=== PATIENT | male | born 1955 | race Two or more races ===

== ENCOUNTER 2017-01-08 15:13 | Emergency (ER) | payer OTHER ==
[2017-01-08 15:22] VITALS: TEMP 97.5; BMI 25.7
[2017-01-08] MEDS ORDERED: SODIUM CHLORIDE 1,000 ML IV STA (15:44)
[2017-01-08] MEDS ORDERED: KETOROLAC TROMETHAMINE 30 MG/1 ML VIAL IVPUSH ONE (15:44)
[2017-01-08] MEDS ORDERED: KETOROLAC TROMETHAMINE 30 MG/1 ML VIAL ONE (15:51)
--- NOTE | 2017-01-08 15:56 | PDOC ---
History of Present Illness - General History Source: Patient Exam Limitations: Language Barrier (The patient's adult son provided translation ) - History of Present Illness Initial Comments: CHIEF COMPLAINT: 61 y/o afebrile male with PMH kidney stones c/o worsened right flank pain over the past 3 days. HISTORY OF PRESENT ILLNESS: The patient states for the past 3 days he has had right flank pain. Today the pain has gotten much worse. He also has nausea, vomiting, chills and hematuria today. He hasn't taken anything for pain. He denies fever, MARTINEZ, CP, SOB, abd pain, dysuria. Vital signs on arrival are within normal limits. REVIEW OF SYSTEMS: GENERAL/CONSTITUTIONAL: No fever. +subjective chills. No weakness. No weight change. HEAD, EYES, EARS, NOSE AND THROAT: No change in vision. No ear pain or discharge. No sore throat. CARDIOVASCULAR: No chest pain or shortness of breath. RESPIRATORY: No cough, wheezing, or hemoptysis. GASTROINTESTINAL: +nausea, vomiting, right flank pain. No diarrhea, constipation. GENITOURINARY: +hematuria. No dysuria or frequency. MUSCULOSKELETAL: No joint or muscle swelling or pain. No neck pain. +right back pain. SKIN: No rash or easy bruising. NEUROLOGIC: No headache, vertigo, loss of consciousness, or loss of sensation. PHYSICAL EXAM: GENERAL: The patient is awake, alert, and fully oriented, in obvious moderate- severe discomfort, writhing around in pain. HEAD: Normal with no signs of trauma. ENT: Pupils equal, round and reactive to light, extraocular movements intact, sclera anicteric, conjunctiva clear. Neck supple. LUNGS: Clear to auscultation bilaterally. Normal excursion. No respiratory distress or use of accessory muscles. CV: RRR, S1/S2, no MRG. Cap refill < 2 sec. ABDOMEN: Soft, non-distended, non-tender even to deep palpation, no hepatomegaly or splenomegaly, no masses. BACK: Right CVA TTP and right flank pain. EXTREMITIES: Normal range of motion, no edema. NEUROLOGICAL: Normal speech, normal gait. CN II-XII grossly intact. PSYCH: Normal mood, normal affect. SKIN: Warm, dry, normal turgor, no rashes or lesions noted. <Katelyn Landis - Last Filed: 01/08/17 18:23> <Rosemarie Hoang - Last Filed: 01/09/17 17:42> - General Chief Complaint: Pain Stated Complaint: PAIN Time Seen by Provider: 01/08/17 15:27 Past History - Past Medical History Kidney Stones: Yes Suicide Attempt (Hx): No - Psycho/Social/Smoking Cessation Hx Anxiety: No Suicidal Ideation: No Smoking History: Never smoked Information on smoking cessation initiated: No Hx Alcohol Use: No Drug/Substance Use Hx: No Substance Use Type: None <Katelyn Landis - Last Filed: 01/08/17 18:23> <Rosemarie Hoang - Last Filed: 01/09/17 17:42> - Past Medical History Allergies/Adverse Reactions: Allergies Allergy/AdvReac Type Severity Reaction Status Date / Time No Known Allergies Allergy Verified 01/08/17 15:18 Home Medications: Ambulatory Orders Ibuprofen 800 mg PO TID #20 tablet 01/08/17 Oxycodone HCl/Acetaminophen [Percocet 5-325 mg Tablet] 1 tab PO Q6H #6 tablet MDD 3 01/08/17 Phenazopyridine HCl [Pyridium -] 100 mg PO TID #6 tablet 01/08/17 *Physical Exam - Vital Signs Last Vital Signs Temp Pulse Resp BP Pulse Ox 97.5 F L 70 18 152/87 100 01/08/17 15:19 01/08/17 15:19 01/08/17 15:19 01/08/17 15:19 01/08/17 15:19 <Katelyn Landis - Last Filed: 01/08/17 18:23> - Vital Signs Last Vital Signs Temp Pulse Resp BP Pulse Ox 97.5 F L 77 20 122/76 96 01/08/17 15:19 01/08/17 18:41 01/08/17 18:41 01/08/17 18:41 01/08/17 18:41 <Rosemarie Hoang - Last Filed: 01/09/17 17:42> ED Treatment Course - LABORATORY CBC & Chemistry Diagram: 01/08/17 16:00 01/08/17 16:00 - RADIOLOGY Radiology Studies Ordered: Category Date Time Status KIDNEY / RENAL US [US] Stat Ultrasound 01/08/17 15:44 Ordered <Katelyn Landis - Last Filed: 01/08/17 18:23> - LABORATORY CBC & Chemistry Diagram: 01/08/17 16:00 01/08/17 16:00 - ADDITIONAL ORDERS Additional order review: 01/08/17 16:00 RBC 5.05 MCV 88.5 MCHC 34.0 RDW 14.1 MPV 10.0 Neutrophils % 76.5 Lymphocytes % 14.8 D Monocytes % 7.8 Eosinophils % 0.7 Basophils % 0.2 - Medications Given in the ED: ED Medications Discontinued Medications Generic Name Dose Route Start Last Admin Trade Name Zanaq PRN Reason Stop Dose Admin Sodium Chloride 1,000 mls @ 1,000 mls/hr 01/08/17 15:44 01/08/17 16:22 Normal Saline - IV 01/08/17 16:43 1,000 mls/hr ASDIR STA Administration Ketorolac Tromethamine 30 mg 01/08/17 15:44 01/08/17 16:22 Toradol Injection - IVPUSH 01/08/17 15:45 30 mg ONCE ONE Administration Morphine Sulfate 4 mg 01/08/17 17:50 01/08/17 18:13 Morphine Injection - IVPUSH 01/08/17 17:51 4 mg ONCE ONE Administration Phenazopyridine HCl 100 mg 01/08/17 17:50 01/08/17 18:13 Pyridium - PO 01/08/17 17:51 100 mg ONCE ONE Administration <Rosemarie Hoang - Last Filed: 01/09/17 17:42> Medical Decision Making - Medical Decision Making A/P: 61 y/o afebrile male with most likely kidney stone. Will r/o pyelo. Plan is as follows: 1. Labs 2. UA/culture 3. IV fluids 4. IV toradol 5. Kidney ultrasound Labs unremarkable. UA without signs of infection Pt appears much more comfortable. Kidney Ultrasound IMPRESSION: CT evaluation may be considered. Spiral CT IMPRESSION: 3x2mm right ureteral calculus at the level of the mid pelvis with resultant mild hydronephrosis. 3mm nonobstructing right renal lower pole calculus. The patient states his pain is coming back. Ordered IV morphine and PO pyridium The patient states he now feels much better. Gave results to him and his son. Will discharge to home with rx for ibuprofen, percocet and pyridium. Pt instructed to drink plenty of fluids daily and f/u with Dr. Zelaya within 2 weeks. Pt instructed to return to the ER with any worsening or concerning symptoms. The patient verbalizes understanding of all instructions, has no further questions and is awaiting discharge. <Katelyn Landis - Last Filed: 01/08/17 18:23> - Medical Decision Making 01/09/17 17:42 Pt seen primarily by CORNELIUS Tapia Agree with plan <Rosemarie Hoang - Last Filed: 01/09/17 17:42> *DC/Admit/Observation/Transfer <Katelyn Landis - Last Filed: 01/08/17 18:23> <Rosemarie Hoang - Last Filed: 01/09/17 17:42> Diagnosis at time of Disposition: Kidney stone on right side - Discharge Dispostion Disposition: HOME Condition at time of disposition: Improved - Prescriptions Prescriptions: Ibuprofen 800 mg PO TID #20 tablet Oxycodone HCl/Acetaminophen [Percocet 5-325 mg Tablet] 1 tab PO Q6H #6 tablet MDD 3 Phenazopyridine HCl [Pyridium -] 100 mg PO TID #6 tablet - Referrals Referrals: STAFF,NOT ON [Primary Care Provider] - Miguel Ángel Zelaya MD [Staff Physician] - - Patient Instructions Printed Discharge Instructions: DI for Kidney Stones Additional Instructions: Discharge Instructions: -Take pain medication as prescribed if needed -Drink at least 64oz of water daily -Follow up with Dr. Zelaya within 2 weeks -Return to the ER with any worsening or concerning symptoms
[2017-01-08 16:15] LABS: BASOPHIL 0.2 % (0-2.0); EOSINOPHIL 0.7 % (0-4.5); MCH 30.1 pg (25.7-33.7); MEAN CELL VOLUME 88.5 fl (80-96); NEUTROPHILS 76.5 % (42.8-82.8); PLATELET COUNT 220 K/MM3 (134-434); RDW 14.1 % (11.9-15.9); WHITE BLOOD COUNT 10.6 K/mm3 (4.0-10.0)
[2017-01-08 16:22] LABS: URINE APPEARANCE SLCLOUDY; URINE BILIRUBIN NEGATIVE (NEGATIVE); URINE COLOR YELLOW; URINE GLUCOSE (UA) NEGATIVE (NEGATIVE); URINE KETONE NEGATIVE (NEGATIVE); URINE LEUK ESTERASE NEGATIVE (NEGATIVE); URINE NITRITE NEGATIVE (NEGATIVE); URINE PROTEIN NEGATIVE (NEGATIVE); URINE UROBILINOGEN NEGATIVE E.U./dl (0.2-1.0)
[2017-01-08 16:23] LABS: URINE BLOOD 3+ (NEGATIVE)
[2017-01-08 16:26] LABS: URINE MUCUS RARE; URINE RBC 65 /hpf (0-3); URINE WBC 1 /hpf (3-5)
[2017-01-08 16:34] LABS: ALBUMIN 4.5 g/dl (3.4-5.0); ANION GAP 7 (8-16); BILIRUBIN,TOTAL 0.6 mg/dL (0.2-1.0); CALCIUM 9.4 mg/dL (8.5-10.1); CO2 29 mmol/L (21-32); GLUCOSE,RANDOM 135 mg/dL (74-106); SGPT/ALT 36 U/L (12-78); TOT PROT 7.7 g/dl (6.4-8.2)
[2017-01-08 16:35] LABS: ALK PHOS 78 U/L (45-117)
[2017-01-08 16:52] LABS: SGOT/AST 22 U/L (15-37)
[2017-01-08] MEDS ORDERED: morphine CARPU-JECT 4 MG/1 ML DISP.SYRIN IVPUSH ONE (17:50)
[2017-01-08] MEDS ORDERED: PHENAZOPYRIDINE HCL 100 MG TABLET (FP) PO ONE (17:50)
[2017-01-08] MEDS ORDERED: morphine CARPU-JECT 4 MG/1 ML DISP.SYRIN ONE (18:08)
[2017-01-08] MEDS ORDERED: PHENAZOPYRIDINE HCL 100 MG TABLET (FP) ONE (18:09)
[2017-01-08 18:42] VITALS: BP 122/76; PULSE 77
== END 2017-01-08 18:31 | disposition home or self-care (01) ==
LOC: JER 15:13
PROC: 3E0333Z Introduction of Anti-inflammatory into Peripheral Vein, Percutaneous Approach (ICD-10-PCS; principal; 2017-01-08)
PROC: 3E033NZ Introduction of Analgesics, Hypnotics, Sedatives into Peripheral Vein, Percutaneous Approach (ICD-10-PCS; 2017-01-08)
PROC: 3E0337Z Introduction of Electrolytic and Water Balance Substance into Peripheral Vein, Percutaneous Approach (ICD-10-PCS; 2017-01-08)
DX: N20.0 Calculus of kidney (principal); Z87.442 Personal history of urinary calculi
CPT/HCPCS: 36415; 74176; 76775-TC; 80053; 81003; 81015; 85025; 87086; 99283-25

== ENCOUNTER 2018-01-02 14:56 | Emergency (ER) | payer OTHER ==
[2018-01-02 15:05] VITALS: BMI 26.9
--- NOTE | 2018-01-02 15:18 | PDOC ---
History of Present Illness - History of Present Illness Initial Comments: 62 year old male with history of kidney stones (last imaging confirmation one year prior) presenting with nausea, vomiting, and left sided flank pain radiating to the lower abdomen. Patient states that the pain was 9/10-10/10, sharp, and sudden onset at 6 AM after which he experienced nausea and NBNB vomiting x2. Denies fevers, chills, diarrhea, chest pain, sob, diaphoresis, or other sick symptoms. 01/02/18 15:19 <Robb Vasquez - Last Filed: 01/02/18 17:28> <Raquel Mckeon - Last Filed: 01/02/18 21:13> - General Chief Complaint: Nausea/Vomiting Stated Complaint: ABDOMINAL PAIN, VOMITING, DIZZINESS Time Seen by Provider: 01/02/18 15:18 Past History - Past Medical History COPD: No Kidney Stones: Yes - Immunization History Immunization Up to Date: Yes - Suicide/Smoking/Psychosocial Hx Smoking History: Never smoked Hx Alcohol Use: No Drug/Substance Use Hx: No Substance Use Type: None <Robb Vasquez - Last Filed: 01/02/18 17:28> <Raquel Mckeon - Last Filed: 01/02/18 21:13> - Past Medical History Allergies/Adverse Reactions: Allergies Allergy/AdvReac Type Severity Reaction Status Date / Time No Known Allergies Allergy Verified 01/02/18 15:00 Home Medications: Ambulatory Orders NK [No Known Home Medication] 01/02/18 Review of Systems - Review of Systems Constitutional: No: Chills, Diaphoresis, Fever HEENTM: No: Blurred Vision, Double Vision Respiratory: No: Cough, Orthopnea, Shortness of Breath, Stridor, Wheezing Cardiac (ROS): No: Chest Pain, Irregular Heart Rate, Syncope ABD/GI: Yes: Nausea, Poor Appetite, Vomiting. No: Constipated, Diarrhea, Rectal Bleeding : Yes: Flank Pain. No: Burning, Dysuria, Discharge, Frequency, Hematuria Musculoskeletal: Yes: Back Pain. No: Muscle Pain, Muscle Weakness Integumentary: No: Bruising, Rash Neurological: No: Headache, Numbness, Paresthesia <Robb Vasquez - Last Filed: 01/02/18 17:28> *Physical Exam - Vital Signs Last Vital Signs Temp Pulse Resp BP Pulse Ox 97.8 F 74 20 140/84 99 01/02/18 15:01 01/02/18 15:01 01/02/18 15:01 01/02/18 15:01 01/02/18 15:01 - Physical Exam General Appearance: Yes: Nourished, Appropriately Dressed, Apparent Distress, Mild Distress HEENT: positive: EOMI, JOSE CRUZ, Normal ENT Inspection, Normal Voice Neck: positive: Trachea midline, Normal Thyroid, Supple. negative: Tender, Rigid Respiratory/Chest: positive: Lungs Clear, Normal Breath Sounds. negative: Chest Tender, Respiratory Distress, Accessory Muscle Use Cardiovascular: positive: Regular Rhythm, Regular Rate Gastrointestinal/Abdominal: positive: Normal Bowel Sounds, Flat, Soft. negative : Tender Musculoskeletal: positive: Normal Inspection. negative: CVA Tenderness Extremity: positive: Normal Capillary Refill, Normal Inspection, Normal Range of Motion. negative: Tender Integumentary: positive: Normal Color, Dry, Warm Neurologic: positive: Fully Oriented, Alert, Normal Mood/Affect, Normal Response <Robb Vasquez - Last Filed: 01/02/18 17:28> - Vital Signs Last Vital Signs Temp Pulse Resp BP Pulse Ox 98.0 F 67 20 117/69 98 01/02/18 20:11 01/02/18 20:11 01/02/18 20:11 01/02/18 20:11 01/02/18 20:11 <Raquel Mckeon - Last Filed: 01/02/18 21:13> ED Treatment Course - LABORATORY CBC & Chemistry Diagram: 01/02/18 Unknown 01/02/18 Unknown <Robb Vasquez - Last Filed: 01/02/18 17:28> - LABORATORY CBC & Chemistry Diagram: 01/02/18 Unknown 01/02/18 Unknown - ADDITIONAL ORDERS Additional order review: Laboratory Results 01/02/18 01/02/18 Unknown 16:38 Sodium 140 Potassium 4.5 Chloride 103 Carbon Dioxide 28 Anion Gap 9 BUN 14 Creatinine 1.1 Creat Clearance w eGFR > 60 Random Glucose 103 D Calcium 9.4 Total Bilirubin 0.8 D AST 31 D ALT 43 Alkaline Phosphatase 80 Total Protein 8.0 Albumin 4.4 Urine Color Yellow Urine Appearance Clear Urine pH 5.0 D Ur Specific [place] 1.021 Urine Protein Negative Urine Glucose (UA) Negative Urine Ketones Trace H Urine Blood 3+ H Urine Nitrite Negative Urine Bilirubin Negative Urine Urobilinogen Negative Ur Leukocyte Esterase Negative Urine WBC (Auto) 1 Urine RBC (Auto) 65 Hyaline Casts 1 Urine Mucus Few 01/02/18 Unknown RBC 4.89 MCV 88.2 MCHC 33.8 RDW 13.6 MPV 11.1 D Neutrophils % 77.1 Lymphocytes % 13.1 Monocytes % 8.1 Eosinophils % 1.4 D Basophils % 0.3 - Medications Given in the ED: ED Medications Discontinued Medications Generic Name Dose Route Start Last Admin Trade Name Zanaq PRN Reason Stop Dose Admin Sodium Chloride 1,000 mls @ 1,000 mls/hr 01/02/18 16:09 01/02/18 16:28 Normal Saline - IV 01/02/18 17:08 1,000 mls/hr ASDIR STA Administration Ketorolac Tromethamine 15 mg 01/02/18 15:39 01/02/18 16:28 Toradol Injection - IVPUSH 01/02/18 15:40 15 mg ONCE ONE Administration Morphine Sulfate 4 mg 01/02/18 16:55 01/02/18 17:04 Morphine Injection - IVPUSH 01/02/18 16:56 4 mg ONCE ONE Administration Morphine Sulfate 4 mg 01/02/18 18:30 01/02/18 18:47 Morphine Injection - IVPUSH 01/02/18 18:31 4 mg ONCE ONE Administration Ondansetron HCl 4 mg 01/02/18 15:41 01/02/18 16:28 Zofran Injection IVPUSH 01/02/18 15:42 4 mg ONCE ONE Administration <Raquel Mckeon - Last Filed: 01/02/18 21:13> Medical Decision Making - Medical Decision Making 62 year old male with PMH of renal stones presenting with sudden onset left flank pain with nausea and vomiting concerning for repeat episode of kidney stones. Will get UA, UC< cbc, cmp, and give toradol, zofran, and 1 liter PO fluid. 01/02/18 15:45 <Robb Vasquez - Last Filed: 01/02/18 17:28> - Medical Decision Making 01/02/18 21:12 THIS IS A PRELIMINARY REPORT FROM [facility] DATE OF SERVICE: 2018-01-02 17:39:29 IMAGES: 44 EXAM: Renal ultrasound HISTORY: Renal colic. History of kidney stones COMPARISON: None. FINDINGS: The kidneys are normal in size and echogenicity There are echogenic foci in both kidneys some of which may be nonobstructing stones although others may be incidental echogenic renal sinus fat No hydronephrosis or renal masses in either kidney Normal vascularity in both kidneys on color Doppler evaluation The urinary bladder was not imaged THIS DOCUMENT HAS BEEN ELECTRONICALLY SIGNED <Raquel Mckeon - Last Filed: 01/02/18 21:13> *DC/Admit/Observation/Transfer <Robb Vasquez - Last Filed: 01/02/18 17:28> - Discharge Dispostion Admit: No <Raquel Mckeon - Last Filed: 01/02/18 21:13> Diagnosis at time of Disposition: Renal colic - Discharge Dispostion Disposition: HOME Condition at time of disposition: Stable - Referrals Referrals: Arpit Patel MD [Primary Care Provider] - - Patient Instructions Printed Discharge Instructions: Kidney Stones -- Adult - Post Discharge Activity
--- NOTE | 2018-01-02 15:18 | PDOC ---
Attending Attestation - Resident Resident Name: Robb Vasquez - ED Attending Attestation I have performed the following: I have examined & evaluated the patient, The case was reviewed & discussed with the resident, I agree w/resident's findings & plan, Exceptions are as noted - HPI HPI: 62 yo M history kidney stones presents with abrupt onset N/V, R flank pain x1 day. History of kidney stones in the past, typically has similar symptoms. Did not take any pain medication prior to arrival. No recent imaging. He had similar symptoms with a stone 1 year ago. - Physicial Exam PE: GENERAL: Awake, alert, and fully oriented. Appears uncomfortable. HEAD: No signs of trauma EYES: PERRLA, EOMI, sclera anicteric, conjunctiva clear ENT: Auricles normal inspection, hearing grossly normal, nares patent, oropharynx clear without exudates. Dry mucosa NECK: Normal ROM, supple, no lymphadenopathy, JVD, or masses LUNGS: Breath sounds equal, clear to auscultation bilaterally. No wheezes, and no crackles HEART: Regular rate and rhythm, normal S1 and S2, no murmurs, rubs or gallops ABDOMEN: Soft, nontender, normoactive bowel sounds. No guarding, no rebound. No masses. +R CVAT. EXTREMITIES: Normal range of motion, no edema. No clubbing or cyanosis. No cords, erythema, or tenderness NEUROLOGICAL: Cranial nerves II through XII grossly intact. Normal speech, normal gait SKIN: Warm, Dry, normal turgor, no rashes or lesions noted. - Medical Decision Making Last imaging 1 year ago. Will obtain ultrasound to r/o hydro. Zofran and toradol in ED.
[2018-01-02] MEDS ORDERED: KETOROLAC TROMETHAMINE 15 MG/ML VIAL IVPUSH ONE (15:39)
[2018-01-02] MEDS ORDERED: ONDANSETRON 4 MG/2 ML VIAL IVPUSH ONE (15:41)
[2018-01-02] MEDS ORDERED: SODIUM CHLORIDE 1,000 ML IV STA (16:09)
[2018-01-02] MEDS ORDERED: KETOROLAC TROMETHAMINE 15 MG/ML VIAL ONE (16:18)
[2018-01-02] MEDS ORDERED: ONDANSETRON 4 MG/2 ML VIAL ONE (16:18)
[2018-01-02 16:31] LABS: BASO % 0.3 % (0-2.0); EOS % 1.4 % (0-4.5); HEMATOCRIT 43.2 % (35.4-49); HEMOGLOBIN 14.6 GM/dL (11.7-16.9); LYMPH % 13.1 % (8-40); MCH 29.8 pg (25.7-33.7); MCHC 33.8 g/dl (32.0-35.9); MEAN CELL VOLUME 88.2 fl (80-96); MEAN PLT VOLUME 11.1 fl (7.5-11.1); MONO % 8.1 % (3.8-10.2); NEUT % 77.1 % (42.8-82.8); PLATELET COUNT 186 K/MM3 (134-434); RBC 4.89 M/mm3 (4.00-5.60); RDW 13.6 % (11.9-15.9); WHITE BLOOD COUNT 8.7 K/mm3 (4.0-10.0)
[2018-01-02 16:52] LABS: URINE APPEARANCE CLEAR; URINE BILIRUBIN NEGATIVE (NEGATIVE); URINE BLOOD 3+ (NEGATIVE); URINE COLOR YELLOW; URINE GLUCOSE (UA) NEGATIVE (NEGATIVE); URINE KETONE TRACE (NEGATIVE); URINE LEUK ESTERASE NEGATIVE (NEGATIVE); URINE NITRITE NEGATIVE (NEGATIVE); URINE PROTEIN NEGATIVE (NEGATIVE); URINE UROBILINOGEN NEGATIVE mg/dL (0.2-1.0)
[2018-01-02] MEDS ORDERED: morphine CARPU-JECT 4 MG/1 ML DISP.SYRIN IVPUSH ONE ×2 (16:55→18:30)
[2018-01-02 17:01] LABS: URINE HYALINE CAST 1 /lpf; URINE MUCUS FEW
[2018-01-02] MEDS ORDERED: MORPHINE SULFATE 10 MG/1 ML *VIAL ONE ×2 (17:07→18:32)
[2018-01-02 17:23] LABS: ALBUMIN 4.4 g/dl (3.4-5.0); ANION GAP 9 (8-16); BLOOD UREA NITROGEN 14 mg/dL (7-18); CALCIUM 9.4 mg/dL (8.5-10.1); CHLORIDE 103 mmol/L (98-107); CO2 28 mmol/L (21-32); CREATININE 1.1 mg/dL (0.7-1.3); GLUCOSE,RANDOM 103 mg/dL (74-106); SGPT/ALT 43 U/L (12-78); SODIUM 140 mmol/L (136-145)
[2018-01-02 17:24] LABS: ALK PHOS 80 U/L (45-117); BILIRUBIN,TOTAL 0.8 mg/dL (0.2-1.0)
[2018-01-02 17:29] LABS: POTASSIUM 4.5 mmol/L (3.5-5.1); SGOT/AST 31 U/L (15-37)
[2018-01-02 20:11] VITALS: BP 117/69; PULSE 67; TEMP 98
--- NOTE | 2018-01-02 21:21 | PDOC ---
*Physical Exam - Vital Signs Last Vital Signs Temp Pulse Resp BP Pulse Ox 98.0 F 67 20 117/69 98 01/02/18 20:11 01/02/18 20:11 01/02/18 20:11 01/02/18 20:11 01/02/18 20:11 - Physical Exam General Appearance: Yes: Nourished ED Treatment Course - LABORATORY CBC & Chemistry Diagram: 01/02/18 Unknown 01/02/18 Unknown - ADDITIONAL ORDERS Additional order review: Laboratory Results 01/02/18 01/02/18 Unknown 16:38 Sodium 140 Potassium 4.5 Chloride 103 Carbon Dioxide 28 Anion Gap 9 BUN 14 Creatinine 1.1 Creat Clearance w eGFR > 60 Random Glucose 103 D Calcium 9.4 Total Bilirubin 0.8 D AST 31 D ALT 43 Alkaline Phosphatase 80 Total Protein 8.0 Albumin 4.4 Urine Color Yellow Urine Appearance Clear Urine pH 5.0 D Ur Specific [place] 1.021 Urine Protein Negative Urine Glucose (UA) Negative Urine Ketones Trace H Urine Blood 3+ H Urine Nitrite Negative Urine Bilirubin Negative Urine Urobilinogen Negative Ur Leukocyte Esterase Negative Urine WBC (Auto) 1 Urine RBC (Auto) 65 Hyaline Casts 1 Urine Mucus Few 01/02/18 Unknown RBC 4.89 MCV 88.2 MCHC 33.8 RDW 13.6 MPV 11.1 D Neutrophils % 77.1 Lymphocytes % 13.1 Monocytes % 8.1 Eosinophils % 1.4 D Basophils % 0.3 - Medications Given in the ED: ED Medications Discontinued Medications Generic Name Dose Route Start Last Admin Trade Name Freq PRN Reason Stop Dose Admin Sodium Chloride 1,000 mls @ 1,000 mls/hr 01/02/18 16:09 01/02/18 16:28 Normal Saline - IV 01/02/18 17:08 1,000 mls/hr ASDIR STA Administration Ketorolac Tromethamine 15 mg 01/02/18 15:39 01/02/18 16:28 Toradol Injection - IVPUSH 01/02/18 15:40 15 mg ONCE ONE Administration Morphine Sulfate 4 mg 01/02/18 16:55 01/02/18 17:04 Morphine Injection - IVPUSH 01/02/18 16:56 4 mg ONCE ONE Administration Morphine Sulfate 4 mg 01/02/18 18:30 01/02/18 18:47 Morphine Injection - IVPUSH 01/02/18 18:31 4 mg ONCE ONE Administration Ondansetron HCl 4 mg 01/02/18 15:41 01/02/18 16:28 Zofran Injection IVPUSH 01/02/18 15:42 4 mg ONCE ONE Administration *DC/Admit/Observation/Transfer Diagnosis at time of Disposition: Renal colic - Discharge Dispostion Disposition: HOME Condition at time of disposition: Stable - Referrals Referrals: Arpit Patel MD [Primary Care Provider] - Carlos Rosales MD [Staff Physician] - - Patient Instructions Printed Discharge Instructions: Kidney Stones -- Adult Additional Instructions: Please make a follow-up appointment with urology either with the name provided or with a referral provided by Dr. Munson. A copy of your cat scan and labs has been provided to you to take to your appointment with Dr. Munson. Return to the Emergency Department for any new/worsening/concerning symptoms. - Post Discharge Activity
--- NOTE | 2018-01-03 12:44 | EKG ---
Test Reason : Blood Pressure : / mmHG Vent. Rate : 067 BPM Atrial Rate : 067 BPM P-R Int : 166 ms QRS Dur : 084 ms QT Int : 378 ms P-R-T Axes : 040 003 066 degrees QTc Int : 399 ms NORMAL SINUS RHYTHM POSSIBLE LEFT ATRIAL ENLARGEMENT BORDERLINE ECG NO PREVIOUS ECGS AVAILABLE Confirmed by ANAHI RETANA MD ([id number]) on 01/03/2018 12:44:09 PM Referred By: Confirmed By:ANAHI RETANA MD
== END 2018-01-02 21:27 | disposition home or self-care (01) ==
LOC: JER 14:56
PROC: 3E0337Z Introduction of Electrolytic and Water Balance Substance into Peripheral Vein, Percutaneous Approach (ICD-10-PCS; principal; 2018-01-02)
PROC: 3E033NZ Introduction of Analgesics, Hypnotics, Sedatives into Peripheral Vein, Percutaneous Approach (ICD-10-PCS; 2018-01-02)
PROC: 3E0333Z Introduction of Anti-inflammatory into Peripheral Vein, Percutaneous Approach (ICD-10-PCS; 2018-01-02)
PROC: 3E033GC Introduction of Other Therapeutic Substance into Peripheral Vein, Percutaneous Approach (ICD-10-PCS; 2018-01-02)
DX: N23 Unspecified renal colic (principal); Z87.442 Personal history of urinary calculi
CPT/HCPCS: 36415; 76775-TC; 80053; 81003; 81015; 85025; 87086; 93005; 93010; 96361; 96374; 96375; 99284-25

== ENCOUNTER 2019-05-30 10:17 | Emergency (ER) | payer SELFPAY ==
[2019-05-30 10:26] VITALS: BP 120/69; PULSE 75; TEMP 98.5; BMI 18.8
[2019-05-30] MEDS ORDERED: DIPHTH,PERTUSS(ACELL),TET 0.5 ML DISP.SYRIN IM ONE ×2 (10:36→10:42)
--- NOTE | 2019-05-30 10:42 | PDOC ---
History of Present Illness - General Chief Complaint: Injury Stated Complaint: INJURY LT.HAND 3RD DIGIT Time Seen by Provider: 05/30/19 10:31 History Source: Patient Exam Limitations: No Limitations - History of Present Illness Initial Comments: 05/30/19 10:44 States had a splinter in his finger which he excised himself using needle at home. And has been manipulating this wound for some weeks. Now has a large growth at site that is nonpainful without drainage. Family member suggested coming to the emergency department for excision. Occurred: reports: other Severity: reports: mild Pain Location: reports: none Method of Injury: Yes: unknown Modifying Factors: improves with: None Loss of Consciousness: no loss of consciousness Associated Symptoms (Fall): denies symptoms Past History - Travel Traveled outside of the country in the last 30 days: No Close contact w/someone who was outside of country & ill: No - Past Medical History Allergies/Adverse Reactions: Allergies Allergy/AdvReac Type Severity Reaction Status Date / Time No Known Allergies Allergy Verified 01/02/18 15:00 Home Medications: Ambulatory Orders NK [No Known Home Medication] 01/02/18 COPD: No Kidney Stones: Yes - Immunization History Immunization Up to Date: Yes - Suicide/Smoking/Psychosocial Hx Smoking History: Never smoked Have you smoked in the past 12 months: No Information on smoking cessation initiated: No Hx Alcohol Use: No Drug/Substance Use Hx: No Substance Use Type: None Review of Systems - Review of Systems Able to Perform ROS?: Yes Is the patient limited French proficient: Yes Constitutional: Yes: See HPI. No: Symptoms Reported, Fever, Malaise HEENTM: No: Symptoms Reported Respiratory: No: Symptoms reported Musculoskeletal: Yes: Symptoms Reported, See HPI, Joint Pain, Joint Swelling Integumentary: Yes: Symptoms Reported, See HPI, Lesions, Lumps All Other Systems: Reviewed and Negative *Physical Exam - Vital Signs Last Vital Signs Temp Pulse Resp BP Pulse Ox 98.5 F 75 16 120/69 100 05/30/19 10:20 05/30/19 10:20 05/30/19 10:20 05/30/19 10:20 05/30/19 10:20 - Physical Exam General Appearance: Yes: Nourished, Appropriately Dressed, Apparent Distress HEENT: positive: JOSE CRUZ, Normal ENT Inspection, TMs Normal, Pharynx Normal Neck: positive: Supple. negative: Tender Extremity: positive: Normal Capillary Refill, Normal Range of Motion, Swelling. negative: Normal Inspection Integumentary: positive: Normal Color, Other (raised granulomatous mass to PIP of left third digit ulnar aspect. Has full range of motion and, has no erythema , purulent drainage or fluctuance to site. Neurovascular intact distal) Neurologic: positive: cigarette tester II-XII NML intact, Fully Oriented, Alert, Normal Mood/ Affect, Normal Response, Motor Strength 5/5 Progress Note - Progress Note Progress Note: Pyogenic granuloma, referred to hand/battery assembler plastic for excision. Tetanus/diphtheria/pertussis booster updated today *DC/Admit/Observation/Transfer Diagnosis at time of Disposition: Pyogenic granuloma - Discharge Dispostion Disposition: HOME Condition at time of disposition: Stable Decision to Admit order: No - Referrals Referrals: Arpit Patel MD [Primary Care Provider] - Gio Ogden MD [Staff Physician] - Cam Fierro MD [Staff Physician] - - Patient Instructions Additional Instructions: Rest, avoid any strenuous activity or exercise until lesions have been removed Avoid any further manipulation of wounds, do not use any instrumentation at home is may cause further inflammation or infection Your tetanus/diphtheria/pertussis booster was updated today Follow-up with hand specialist worse plastic surgeon for excision of this pyogenic granuloma - Post Discharge Activity Forms/Work/School Notes: Back to Work
== END 2019-05-30 10:51 | disposition home or self-care (01) ==
LOC: JERFT 10:17
PROC: 3E0234Z Introduction of Serum, Toxoid and Vaccine into Muscle, Percutaneous Approach (ICD-10-PCS; principal; 2019-05-30)
DX: L98.0 Pyogenic granuloma (principal)
CPT/HCPCS: 90715; 99281-25

== ENCOUNTER 2019-07-29 07:21 | Observation (INO) | payer OTHER ==
[2019-07-29 07:39] VITALS: BMI 22.8
--- NOTE | 2019-07-29 07:51 | PDOC ---
History of Present Illness - General Chief Complaint: Lightheaded Stated Complaint: DIZZINESS Time Seen by Provider: 07/29/19 07:49 - History of Present Illness Initial Comments: 07/29/19 08:32 HPI: 64 y/o M with hx of kidney stones presenting with 1 day of BL frontal headache that began yesterday around 8am associated with gait unsteadiness. He states he woke up in the morning and felt the pain. Pain is constant and non radiating; feels like a heaviness. He took motrin with minimal temporary relief, but pain is currently back to its initial constant level. His unsteadiness is described as feeing like he is going to fall over, but denies any falls or syncope. He also describes the room as spinning with some positional worsening when turning his head. Denies any history of similar headache or unsteadiness Patient denies fever, vision change, chest pain, palpitations, diaphoresis, SOB , cough, leg swelling, abdominal pain, nausea, vomiting, diarrhea, constipation , dysuria. Of note patient also reports 3 months hx of RUE weakness and reports not being able to screw on bottle caps or hold heavy items, requiring his left arm to complete certain tasks. He denies dropping any object. Also reports occasional tingling. PMHx: as noted above ROS: as noted SHx: Denies tobacco use; no alcohol use; no rec drugs Allergies: NKDA PCP: Ned Patel tPA Exclusion Checklist 0-3hr - Time Elapsed Date last known well: 07/28/19 Time last known well: 08:00 Elaspsed time: 1 Day(s) and 3 Hour(s) and 0 Minutes - Thrombolytic Therapy Candidate Is the patient eligible for Thrombolytic Therapy?: No - Exclusion Criteria 0-3hr SBP greater than 185 or DBP greater than 110mmHg despite tx: No Recent IC/spinal surgery,head trauma or stroke w/in last 3mo: No Hx of previous IC hemorrhage, IC neoplasm, AVM or aneurysm: No Active internal bleeding: No Blding diathesis(low plt ct, inc PTT,INR>1.7 or use of NOAC): Yes Symptoms suggest subarachnoid hemorrhage: No CT demonstrates multilobar infarct(>1/3 cerebral hemiphere): No Arterial puncture at noncompressible site in previous 7 days: No Blood glucose concentration less than 50mg/dL (2.7mmol/L): No - Relative Exclusion Criteria 0-3h Life expectancy <1yr/severe co-morbid illness/INSURANCE ADVISOR on admit: No : No Patient/family refused: No Rapid improvement: No Stroke severity too mild: No Recent acute OR (w/in previous 3 months): No Seizure at onset with postictal residual neuro impairments: No Major surgery or serious trauma w/in previous 14 days: No Recent GI or hemorrhage (w/in previous 21 days): No - Ineligibility reason(s) Reasons No tPA given: Outside of window - delayed arrival NIH Stroke Scale - Last Known Well Date/Time & Onset Date Last Known Well: 07/28/19 Time Last Known Well: 08:00 - Initial Evaluation Level of consciousness: Alert Ask patient the month and their age: Answers both correctly Ask patient to open & close eyes; make fist and let go: Obeys both correctly Best gaze (horizontal eye movement): Normal Visual field testing: No visual field loss Facial paresis (Show teeth/raise eyebrows/close eyes tight): Normal symmetrical movement Motor Function: Left Arm: Normal Motor Function: Right Arm: Normal (extends arm 90 (or 45) degrees for 10 seconds without drift Motor Function: Left Leg: Normal (extends leg 30 degrees for 5 seconds without drift) Motor Function: Right Leg: Normal (extends leg 30 degrees for 5 seconds without drift) Limb Ataxia: No ataxia Sensory(Use pinprick test arms,legs,trunk,face/side to side): Normal Best language (Describe picture, name items, read sentences): No Aphasia Dysarthria (read several words): Normal articulation Extinction and Inattention: No abnormality - Total Score NIH Stroke Scale Score: 0 Past History - Past Medical History Allergies/Adverse Reactions: Allergies Allergy/AdvReac Type Severity Reaction Status Date / Time No Known Allergies Allergy Verified 07/29/19 07:37 Home Medications: Ambulatory Orders NK [No Known Home Medication] 07/29/19 COPD: No Kidney Stones: Yes - Immunization History Immunization Up to Date: Yes - Suicide/Smoking/Psychosocial Hx Smoking History: Never smoked Have you smoked in the past 12 months: No Hx Alcohol Use: No Drug/Substance Use Hx: No Substance Use Type: None Review of Systems - Review of Systems Comments:: 07/29/19 09:09 GENERAL/CONSTITUTIONAL: No fever or chills. HEAD, EYES, EARS, NOSE AND THROAT: No change in vision. No ear pain or discharge. No sore throat. CARDIOVASCULAR: No chest pain or shortness of breath RESPIRATORY: No cough, wheezing, or hemoptysis. GASTROINTESTINAL: No nausea, vomiting, diarrhea or constipation. GENITOURINARY: No dysuria, frequency, or change in urination. MUSCULOSKELETAL: No joint or muscle swelling or pain. No neck or back pain. SKIN: No rash NEUROLOGIC: +headache and RUE weakness. no vertigo, loss of consciousness, or change in strength/sensation. ENDOCRINE: No increased thirst. No abnormal weight change HEMATOLOGIC/LYMPHATIC: No anemia, easy bleeding, or history of blood clots. ALLERGIC/IMMUNOLOGIC: No hives or skin allergy. *Physical Exam - Vital Signs Last Vital Signs Temp Pulse Resp BP Pulse Ox 97.9 F 65 18 115/72 98 07/29/19 07:34 07/29/19 07:34 07/29/19 07:34 07/29/19 07:34 07/29/19 07:34 - Physical Exam Comments: 07/29/19 09:12 GENERAL: Awake, alert, and fully oriented, no acute distress HEAD: No signs of trauma, normocephalic, atraumatic EYES: EOMI, sclera anicteric, conjunctiva clear ENT: Auricles normal inspection, hearing grossly normal, nares patent, oropharynx clear without exudates. Moist mucosa NECK: Normal ROM, no tenderness, no lymphadenopathy LUNGS: No increased work of breathing, symmetrical chest rise, clear to auscultation bilaterally, no wheezes, crackles or rhonchi HEART: Regular rate and rhythm, normal S1 and S2, no murmurs, peripheral pulses 2+ and equal bilaterally. ABDOMEN: Soft, nontender, nondistended, normoactive bowel sounds. No guarding, no rebound. No masses EXTREMITIES: Normal inspection, Normal range of motion, no edema. No clubbing or cyanosis. NEUROLOGICAL: Cranial nerves II through XII grossly intact. Normal speech, normal gait, no focal sensorimotor deficits. UE and LE 5/5 str, negative FTN and heel to cobb test, negative pronator drift, negative giorgio hallpike test SKIN: Warm, Dry, normal turgor, no rashes or lesions noted ED Treatment Course - LABORATORY CBC & Chemistry Diagram: 07/29/19 08:17 07/29/19 08:17 Medical Decision Making - Medical Decision Making 07/29/19 09:17 64 y/o M with hx of kidney stones presenting with 1 day of BL frontal headache that began yesterday around 8am associated with gait unsteadiness. Of note patient also reports 3 months hx of RUE weakness and reports not being able to screw on bottle caps or hold heavy items, requiring his left arm to complete certain tasks associated with occasional tingling. Vitals wnl. PE unremarkable with CN2-12 intact, UE/LE sensorimotor intact, negative ataxia. DDx includes but not limited to dehydration vs tension headache vs TIA/CVA vs lyte abnormality vs cardiac arrhytmia. Given recent RUE weakness and now headache, brain mass on the differential. -cbc, cmp, trops, mg, phos, tsh, free t4 -ekg, cxr, ct head -SILVANA, curry foy 07/29/19 10:06 EKG: NSR with Twave inversion in lateral leads. Pain completely resolved CT head negative with no acute abnormality Patient will be admitted for obs for further workup 07/29/19 11:00 Dr Salvador admitting physician requesting MRI brain noncon for further eval 07/29/19 11:01 Patient remembered he was hospitalized in [place] 6months ago for a bleeding ulcer , however, unclear surrounding circumstances and patient without additional details *DC/Admit/Observation/Transfer Diagnosis at time of Disposition: Unsteady gait, Near syncope - Discharge Dispostion Condition at time of disposition: Stable Decision to Admit order: Yes - Referrals - Patient Instructions - Post Discharge Activity
[2019-07-29] MEDS ORDERED: SODIUM CHLORIDE 1,000 ML IV STA (08:13)
[2019-07-29] MEDS ORDERED: ACETAMINOPHEN 1000 MG/100 ML VIAL (NON FORMULARY) IVPB ONE (08:13)
[2019-07-29] MEDS ORDERED: METOCLOPRAMIDE HCL INJECTION 10 MG/2 ML VIAL IVPUSH ONE (08:14)
--- NOTE | 2019-07-29 08:19 | PDOC ---
Attending Attestation - Resident Resident Name: Dedrick Berg - ED Attending Attestation I have performed the following: I have examined & evaluated the patient, The case was reviewed & discussed with the resident, I agree w/resident's findings & plan, Exceptions are as noted - HPI HPI: 07/29/19 10:02 64yo male with shin, lightheaded and off balance since yesterday. Denies vertiginous symptoms, admits to being off balance in the bathroom while standing and fell into the mirror yesterday and this AM. C/o 3m of R hand weakness as well. Pt states he has been unable to carry his lunch bag or open cans when he opens soda. Pt denies trauma. Pt denies loc. Pt denies cp/sob. no abd pain. No n/v/d. No dysuria. No f/c. Pt has not seen a PMD in over a year. - Physicial Exam PE: 07/29/19 10:07 Gen: aaox3, nad heart: +s1s2 reg lungs: cta b/l abd: soft, nt/nd +bs ext: no c/c/e neuro: CN ii-xii groslly intact, muscle strength 5/5 UE and LE, muscle strength intact in lumbricals and interosseous muscles of the hands b/l, pulses intact, sensation intact b/l UE and LE, no focal neuro deficits skin: no rashes - Medical Decision Making 07/29/19 10:09 a/p: 64yo male with 3m of hand weakness per the patient and shin/lightheaded since yesterday -will send labs, tsh, electrolytes -head ct, though no focal deficits, nihss 0, tpa exclusion is that pt has had symptoms of hand weakness x 3m -will perform ekg, cxr -will send trop -will give reglan and ivf hydration for shin -will monitor -given near syncope symptoms and head injury yesterday will place in obs for near syncope/lightheaded 07/29/19 10:12 mild thrombocytopenia on labs elevated tsh, but normal free t4 pt feels better and shin free after [facility] 07/29/19 10:13 trop neg abnl ekg will place on tele 07/29/19 10:19 pt has been accepted by [facility] obs Heart Score/ECG Review - ECG Intrepretation Comment:: 07/29/19 10:13 sinus at 62, nl axis, nl itnerval, t wave inversions lateral leads, abnl ekg, no acute st changes
[2019-07-29] MEDS ORDERED: METOCLOPRAMIDE HCL INJECTION 10 MG/2 ML VIAL ONE (08:21)
[2019-07-29] MEDS ORDERED: ACETAMINOPHEN INJECTION 100 ML IVPB ONE (08:21)
[2019-07-29 08:55] LABS: ALBUMIN 3.8 g/dl (3.4-5.0); BILIRUBIN,TOTAL 0.5 mg/dL (0.2-1); BLOOD UREA NITROGEN 7.6 mg/dL (7-18); CALCIUM 8.4 mg/dL (8.5-10.1); CREATININE 0.8 mg/dL (0.55-1.3); POTASSIUM 3.9 mmol/L (3.5-5.1); TOT PROT 6.9 g/dl (6.4-8.2)
[2019-07-29 09:03] LABS: MAGNESIUM 2.3 mg/dL (1.8-2.4); PHOSPHOROUS 2.8 mg/dL (2.5-4.9)
[2019-07-29 09:06] LABS: BASO % 0.5 % (0-2.0); EOS % 1.3 % (0-4.5); HEMATOCRIT 42.1 % (35.4-49); HEMOGLOBIN 14.3 GM/dL (11.7-16.9); LYMPH % 32.8 % (8-40); MCHC 33.9 g/dl (32.0-35.9); MEAN CELL VOLUME 88.4 fl (80-96); MEAN PLT VOLUME 11.6 fl (7.5-11.1); MONO % 14.3 % (3.8-10.2); NEUT % 51.1 % (42.8-82.8); RBC 4.76 M/mm3 (4.00-5.60); RDW 14.1 % (11.9-15.9); WHITE BLOOD COUNT 4.1 K/mm3 (4.0-10.0)
[2019-07-29] MEDS ORDERED: ACETAMINOPHEN 325 MG TABLET (FP) PO PRN (10:37)
--- NOTE | 2019-07-29 10:37 | HP ---
CHIEF COMPLAINT: headache, vertigo and gait instability PCP: Dr. Arpit Patel in [place] HISTORY OF PRESENT ILLNESS: 64 yom with no significant PMHx was in his [facility] till yesterday when started having frontal headache, like heaviness, associated with positional vertigo and gait instability. reports symptoms resolved after receiving fluids in the ED. No prior similar history. Per patient and , minimal fluid intake during the day. No weakness, tingling, numbness, witnessed facial asymmetry/speech disturbances , fevers, chills, URI like illness, ear symptoms, abdominal or urinary symptoms. No h/o easy bruising or bleeding noted. 12 point ROS done, also reports unintentional weight loss over last 2 months, unable to quantify. ER course was notable for: (1) CT brain neg for acute process (2) reglan/tylenol, IVF Recent Travel: Denies PAST MEDICAL HISTORY: Denies PAST SURGICAL HISTORY: Denies Social History: Smoking: Denies Alcohol: Denies Drugs: Denies Works at [employer], lives with , independent in ADLs Family History: Allergies No Known Allergies Allergy (Verified 07/29/19 07:37) HOME MEDICATIONS: Home Medications Medication Instructions Recorded NK [No Known Home Medication] 07/29/19 REVIEW OF SYSTEMS 12 point ROS done, per HPI PHYSICAL EXAMINATION Vital Signs - 24 hr 07/29/19 07:34 Temperature 97.9 F Pulse Rate 65 Respiratory 18 Rate Blood Pressure 115/72 O2 Sat by Pulse 98 Oximetry (%) GENERAL: Awake, alert, and fully oriented, in no acute distress. HEAD: Normal with no signs of trauma. EYES: Pupils equal, round and reactive to light, extraocular movements intact, sclera anicteric, conjunctiva clear. No lid lag. EARS, NOSE, THROAT: Ears normal, nares patent, oropharynx clear without exudates. Moist mucous membranes. NECK: Normal range of motion, supple without lymphadenopathy, JVD, or masses. LUNGS: Breath sounds equal, clear to auscultation bilaterally. No wheezes, and no crackles. No accessory muscle use. HEART: Regular rate and rhythm, normal S1 and S2 without murmur, rub or gallop. ABDOMEN: Soft, nontender, not distended, normoactive bowel sounds, no guarding, no rebound, no masses. No hepatosplenomegaly appreciated MUSCULOSKELETAL: Normal range of motion at all joints. No bony deformities or tenderness. No CVA tenderness. UPPER EXTREMITIES: 2+ pulses, warm, well-perfused. No cyanosis. No clubbing. No peripheral edema. LOWER EXTREMITIES: 2+ pulses, warm, well-perfused. No calf tenderness. No peripheral edema. NEUROLOGICAL: AAOx3, power 5/5, sensation intact and symmetric to light tough, DTR bilaterally symmetric, facial symmetry, tongue midline, EOMI, finger nose test and heel cobb test with no past pointing, Cranial nerves II-XII intact. Normal speech. gait some with swaying to left PSYCHIATRIC: Cooperative. Good eye contact. Appropriate mood and affect. SKIN: Warm, dry, normal turgor, no rashes or lesions noted, normal capillary refill. Laboratory Results - last 24 hr 07/29/19 07/29/19 07/29/19 08:17 08:17 08:17 WBC 4.1 RBC 4.76 Hgb 14.3 Hct 42.1 MCV 88.4 MCH 30.0 MCHC 33.9 RDW 14.1 Plt Count 74 L D MPV 11.6 H Absolute Neuts (auto) 2.1 Neutrophils % 51.1 D Lymphocytes % 32.8 D Monocytes % 14.3 H Eosinophils % 1.3 Basophils % 0.5 Nucleated RBC % 0 Sodium 141 Potassium 3.9 Chloride 109 H Carbon Dioxide 27 Anion Gap 6 L BUN 7.6 Creatinine 0.8 Est GFR (CKD-EPI)AfAm 108.65 Est GFR (CKD-EPI)NonAf 93.74 Random Glucose 84 Calcium 8.4 L Phosphorus 2.8 Magnesium 2.3 Total Bilirubin 0.5 AST 22 ALT 41 Alkaline Phosphatase 70 Creatine Kinase 150 Creatine Kinase Index 1.2 CK-MB (CK-2) 1.8 Troponin I < 0.02 Total Protein 6.9 Albumin 3.8 TSH 5.[address] 0[address] brain results and images reviewed EKG: NSR, biphasic T in V2, T inversion in V4-V5 ASSESSMENT/PLAN: 64 yom with no significant PMHx admitted with headache/vertigo/gait instability -Headache/vertigo/gait instability, r/o Posterior TIA vs CVA -Thrombocytopenia, ?new -Abnormal EKG -Dehydration Plan: Telemetry, neuro checks, Cycle trop. MRI brain. Neurology input. Carotid duplex/2Decho, may need to be done outpatient based on clinical course. IVF. bedside swallow eval advance diet. to discuss with PCP to get recent CBC. repeat CBC. Abdominal US, hematology input. Check lipid panel. Not a candidate for ASA currently given significant thrombocytopenia DVTPPX SCDs Admit to stroke tele obs. Dc in 24 hours if doing well and work up non concerning. Discussed with patient and in detail, all questions answered. total admit time 55 min. Visit type - Emergency Visit Emergency Visit: Yes Care time: The patient presented to the Emergency Department on the above date and was hospitalized for further evaluation of their emergent condition. - New Patient This patient is new to me today: Yes Date on this admission: 07/29/19 - Critical Care Critical Care patient: No
[2019-07-29] MEDS ORDERED: SODIUM CHLORIDE 1,000 ML IV SCH (10:45)
--- NOTE | 2019-07-29 11:29 | EKG ---
Test Reason : Blood Pressure : / mmHG Vent. Rate : 062 BPM Atrial Rate : 062 BPM P-R Int : 170 ms QRS Dur : 086 ms QT Int : 380 ms P-R-T Axes : 062 018 038 degrees QTc Int : 385 ms NORMAL SINUS RHYTHM POSSIBLE LEFT ATRIAL ENLARGEMENT NONSPECIFIC T WAVE ABNORMALITY ABNORMAL ECG WHEN COMPARED WITH ECG OF 02-JAN-2018 20:17, NONSPECIFIC T WAVE ABNORMALITY NOW EVIDENT IN INFERIOR LEADS Confirmed by YARELI THORNE, DANITA ([id number]) on 07/29/2019 11:29:05 AM Referred By: Confirmed By:DANITA DOWNS MD
[2019-07-29 12:58] LABS: PLATELET COUNT 74 K/MM3 (134-434)
[2019-07-29 13:38] LABS: BASO % 0.8 % (0-2.0); EOS % 1.5 % (0-4.5); HEMATOCRIT 43.5 % (35.4-49); HEMOGLOBIN 14.6 GM/dL (11.7-16.9); MCH 29.8 pg (25.7-33.7); MCHC 33.6 g/dl (32.0-35.9); MEAN CELL VOLUME 88.7 fl (80-96); MEAN PLT VOLUME 11.6 fl (7.5-11.1); MONO % 11.9 % (3.8-10.2); NEUT % 49.8 % (42.8-82.8); PLATELET COUNT 75 K/MM3 (134-434); RDW 14.3 % (11.9-15.9)
--- NOTE | 2019-07-29 14:31 | DS ---
Physical Exam: SUBJECTIVE: Patient seen and examined, symptoms resolved. Ambulating, no complaints. Denies any nausea, vomiting, dark or bloody stools, infrequently takes NSAIDs OBJECTIVE: Vital Signs Period Temp Pulse Resp BP Sys/Guadalupe Pulse Ox Last 24 Hr 97.9 F 58-65 18 115-125/72-75 98 Intake & Output 07/26/19 07/27/19 07/28/19 07/29/19 23:59 23:59 23:59 23:59 Weight 145 lb 8.081 oz PHYSICAL EXAM GENERAL: Awake, alert, and fully oriented, in no acute distress. HEAD: Normal with no signs of trauma. EYES: Pupils equal, round and reactive to light, extraocular movements intact, sclera anicteric, conjunctiva clear. No lid lag. EARS, NOSE, THROAT: Ears normal, nares patent, oropharynx clear without exudates. Moist mucous membranes. NECK: Normal range of motion, supple without lymphadenopathy, JVD, or masses. LUNGS: Breath sounds equal, clear to auscultation bilaterally. No wheezes, and no crackles. No accessory muscle use. HEART: Regular rate and rhythm, normal S1 and S2 without murmur, rub or gallop. ABDOMEN: Soft, nontender, not distended, normoactive bowel sounds, no guarding, no rebound, no masses. No hepatosplenomegaly appreciated MUSCULOSKELETAL: Normal range of motion at all joints. No bony deformities or tenderness. No CVA tenderness. UPPER EXTREMITIES: 2+ pulses, warm, well-perfused. No cyanosis. No clubbing. No peripheral edema. LOWER EXTREMITIES: 2+ pulses, warm, well-perfused. No calf tenderness. No peripheral edema. NEUROLOGICAL: AAOx3, power 5/5, sensation intact and symmetric to light tough, DTR bilaterally symmetric, facial symmetry, tongue midline, EOMI, finger nose test and heel cobb test with no past pointing, Cranial nerves II-XII intact. Normal speech. gait normal PSYCHIATRIC: Cooperative. Good eye contact. Appropriate mood and affect. SKIN: Warm, dry, normal turgor, no rashes or lesions noted, normal capillary refill. LABS Laboratory Results - last 24 hr 07/29/19 07/29/19 07/29/19 08:17 08:17 08:17 WBC 4.1 RBC 4.76 Hgb 14.3 Hct 42.1 MCV 88.4 MCH 30.0 MCHC 33.9 RDW 14.1 Plt Count 74 L D MPV 11.6 H Absolute Neuts (auto) 2.1 Neutrophils % 51.1 D Lymphocytes % 32.8 D Monocytes % 14.3 H Eosinophils % 1.3 Basophils % 0.5 Nucleated RBC % 0 Sodium 141 Potassium 3.9 Chloride 109 H Carbon Dioxide 27 Anion Gap 6 L BUN 7.6 Creatinine 0.8 Est GFR (CKD-EPI)AfAm 108.65 Est GFR (CKD-EPI)NonAf 93.74 Random Glucose 84 Calcium 8.4 L Phosphorus 2.8 Magnesium 2.3 Total Bilirubin 0.5 AST 22 ALT 41 Alkaline Phosphatase 70 Creatine Kinase 150 Creatine Kinase Index 1.2 CK-MB (CK-2) 1.8 Troponin I < 0.02 Total Protein 6.9 Albumin 3.8 Vitamin B12 582 TSH 5.47 H Free T4 0.89 07/29/19 13:09 WBC 4.0 RBC 4.90 Hgb 14.6 Hct 43.5 MCV 88.7 MCH 29.8 MCHC 33.6 RDW 14.3 Plt Count 75 L MPV 11.6 H Absolute Neuts (auto) 2.0 Neutrophils % 49.8 Lymphocytes % 36.0 Monocytes % 11.9 H Eosinophils % 1.5 Basophils % 0.8 Nucleated RBC % 0 Sodium Potassium Chloride Carbon Dioxide Anion Gap BUN Creatinine Est GFR (CKD-EPI)AfAm Est GFR (CKD-EPI)NonAf Random Glucose Calcium Phosphorus Magnesium Total Bilirubin AST ALT Alkaline Phosphatase Creatine Kinase Creatine Kinase Index CK-MB (CK-2) Troponin I Total Protein Albumin Vitamin B12 TSH Free T4 CT brain - no acute process MRI brain -no infarct identified. suspecpted hypoplasia intracranial left vertebral artery Abdomen US - no acute process HOSPITAL COURSE: Date of Admission:07/29/19 Date of Discharge: 07/29/19 Minutes to complete discharge: 35 Discharge Summary Reason For Visit: DIZZINESS/PRE-SYNCOPE Current Active Problems Near syncope (Acute) Unsteady gait (Acute) Hospital Course: 64 yom with PMhx of lulu esophagitis/Duodenal Ulcer diagnosed in [place] in 2017, comes with 2 days of headache, vertigo and gait instability. His symptoms resolved after receiving hydration in ED. He had MRI brain that was negative for infarct and carotid duplex with no significant stenosis. He was also incidentally noted with platelets 75, his repeat counts were stable. patient reported being told of a 'low blood count' but more information not available. He had Abdomen Ultrasound that was unremarkable. No concerns for bleed/petechiae were noted and hemoglobin was stable around 14.5. He was strictly advised to avoid any NSAIDs and close CBC monitoring outpatient and hematology referral. He was also noted with TSH 5.47 with normal free T4 and advised repeat thyroid panel in 1-2 weeks. He is currently asymptomatic and will be discharged home in stable condition with close outpatient CBC monitor and additional treatment for thrombocytopenia. Current instructions and plan has been discussed in detail with patient and niece at bedside and they relayed full understanding and agreed to close follow up. Condition: Stable - Instructions Diet, Activity, Other Instructions: You were admitted with headache, vertigo and unsteady gait. You had MRI brain and carotid duplex that were negative for concerns Your blood count 'platelets' was incidentally noted to be low at 75. You had belly ultrasound that was normal. Your TSH level was mildly elevated 5.47 but free T4 level was normal and will need repeat testing with your doctor MEDICATIONS: Do not take any NSAIDs such as ibuprofen, motrin, aleve etc without discussion with your doctor Protonix 20 mg daily for 1 week, then as directed. INSTRUCTIONS: Drink plenty of fluids You will need monitoring of your blood counts with your doctor. Do not take any NSAIDs or blood thinners without discussion with your doctor. Tylenol is ok FOLLOW UP: Blood work CBC (complete blood count) in 2-3 days with your doctor Thyroid test TSH In 1 week and thyroid supplementation accordingly. Follow up with in 1 week Please discuss outpatient hematology referral for low platelet count Outpatient Neurologist follow up with assess your brain blood flow and additional testing as indicated. If you notice any rash, bleeding, dark stools, dizziness, or any new concerns, please call 911 or come back to the ED. Referrals: Arpit Patel MD [Primary Care Provider] - Juan Deras MD [Staff Physician] - Disposition: HOME - Home Medications Comprehensive Discharge Medication List: Ambulatory Orders Acetaminophen [Tylenol .Regular Strength -] 650 mg PO Q6H PRN tablet 07/29/19 Pantoprazole Sodium [Protonix -] 20 mg PO DAILY #7 tablet.ec 07/29/19 This patient is new to me today: Yes Date on this admission: 07/29/19 Emergency Visit: Yes ED Registration Date: 07/29/19 Care time: The patient presented to the Emergency Department on the above date and was hospitalized for further evaluation of their emergent condition. Critical Care patient: No - Discharge Referral Referred to [facility] No
[2019-07-29 14:40] VITALS: BP 125/76; PULSE 63; TEMP 97.6
[2019-07-30] MEDS ORDERED: PANTOPRAZOLE 40 MG TABLET (FP) PO SCH (10:00)
== END 2019-07-29 14:53 | disposition home or self-care (01) ==
LOC: JER 07:21 → JERBED 09:40
PROVIDERS: ADMIT Hospitalist; ATTEND Hospitalist
PROC: 3E033NZ Introduction of Analgesics, Hypnotics, Sedatives into Peripheral Vein, Percutaneous Approach (ICD-10-PCS; principal; 2019-07-29)
PROC: 3E0337Z Introduction of Electrolytic and Water Balance Substance into Peripheral Vein, Percutaneous Approach (ICD-10-PCS; 2019-07-29)
PROC: 3E033GC Introduction of Other Therapeutic Substance into Peripheral Vein, Percutaneous Approach (ICD-10-PCS; 2019-07-29)
DX: R55 Syncope and collapse (principal); R26.81 Unsteadiness on feet; R51 Headache; R42 Dizziness and giddiness; E86.0 Dehydration; R94.31 Abnormal electrocardiogram [ECG] [EKG]; D69.6 Thrombocytopenia, unspecified
CPT/HCPCS: 36415; 70450-TC; 70551-TC; 71045-TC-FY; 76700-TC; 80053; 82550; 82553; 82607; 83735; 84100; 84439; 84443; 84484; 85025; 93005; 93010; 93880-TC; 96361; 96374; 96375; 99285-25; G0378; J0131; J7030

== ENCOUNTER 2019-08-12 21:04 | Emergency (ER) | payer OTHER ==
[2019-08-12 21:15] VITALS: BP 109/67; PULSE 70; TEMP 97.9; BMI 24.7
[2019-08-12] MEDS ORDERED: MECLIZINE HCL 25 MG TABLET (FP) PO ONE (22:15)
[2019-08-12] MEDS ORDERED: MECLIZINE HCL 25 MG TABLET (FP) ONE (22:32)
--- NOTE | 2019-08-12 23:30 | PDOC ---
History of Present Illness - General Chief Complaint: Lightheaded Stated Complaint: DIZZINESS Time Seen by Provider: 08/12/19 21:37 History Source: Patient, Family Exam Limitations: No Limitations Past History - Past Medical History Allergies/Adverse Reactions: Allergies Allergy/AdvReac Type Severity Reaction Status Date / Time No Known Allergies Allergy Verified 07/29/19 07:37 Home Medications: Ambulatory Orders Acetaminophen [Tylenol .Regular Strength -] 650 mg PO Q6H PRN tablet 07/29/19 Pantoprazole Sodium [Protonix -] 20 mg PO DAILY #7 tablet.ec 07/29/19 Meclizine HCl 25 mg PO Q6H PRN #20 tablet 08/12/19 COPD: No Kidney Stones: Yes - Immunization History Immunization Up to Date: Yes - Suicide/Smoking/Psychosocial Hx Smoking History: Never smoked Have you smoked in the past 12 months: No Hx Alcohol Use: No Drug/Substance Use Hx: No Substance Use Type: None *Physical Exam - Vital Signs Last Vital Signs Temp Pulse Resp BP Pulse Ox 97.9 F 70 19 109/67 99 08/12/19 21:12 08/12/19 21:12 08/12/19 21:12 08/12/19 21:12 08/12/19 21:12 - Physical Exam General Appearance: No: Apparent Distress HEENT: positive: EOMI, JOSE CRUZ, TMs Normal, Other (no nystagmus) Respiratory/Chest: positive: Lungs Clear, Normal Breath Sounds. negative: Respiratory Distress Cardiovascular: positive: Regular Rhythm, Regular Rate, S1, S2. negative: Murmur Gastrointestinal/Abdominal: positive: Normal Bowel Sounds, Soft. negative: Tender, Distended, Guarding, Rebound Neurologic: positive: keno writer II-XII NML intact, Fully Oriented, Alert, Normal Mood/ Affect, Motor Strength 5/5, Finger to Nose (normal), Other (excess swaying with Romberg's but does not fall down, +off balance with tandem walking). negative: Facial Droop, Confused, Disoriented ED Treatment Course - RADIOLOGY Radiology Studies Ordered: Category Date Time Status HEAD CT (STROKE) [CT] Stat CT Scan 08/12/19 22:15 Taken - Medications Given in the ED: ED Medications Discontinued Medications Generic Name Dose Route Start Last Admin Trade Name Freq PRN Reason Stop Dose Admin Meclizine HCl 50 mg 08/12/19 22:15 08/12/19 22:33 Antivert - PO 08/12/19 22:16 50 mg ONCE ONE Administration Medical Decision Making - Medical Decision Making 64 y/o M hx of lulu esophagitis/duodenal ulcer presents with R sided MARTINEZ, vertigo and ataxia since 07/28. Mentions symptoms occur sporadically. Patient is still able to drive, work and perform other necessities. Patient was recently seen 2 weeks ago for same complaint and was admitted to hospital. He had CT head , MRI brain, carotid dopplers done which were unremarkable. Bloodwork at that time was only notable for thrombocytopenia. Patient is not on blood thinners. Patient's nephew brought him back to ED stating his sxs have not improved and he could not see his PCP as PCP was on vacation. Patient was also referred to neurologist but nephew states he was not aware of that referral. Nephew requesting to see if we could also image his neck. Denies fever, sob, cp, abd pain, vomiting, LOC, numbness/tingling/weakness of extremities, ear pain, hearing loss, visual changes Repeat CT head done given thrombocytopenia (per nephew,patient had bloodwork 08/01 during which platelet count was 90) Repeat CT head negative Given Meclizine which patient states helped Patient given list of neurologists to f/u with 08/12/19 23:22 *DC/Admit/Observation/Transfer Diagnosis at time of Disposition: Vertigo - Discharge Dispostion Disposition: HOME Condition at time of disposition: Stable Decision to Admit order: No - Prescriptions Prescriptions: Meclizine HCl 25 mg PO Q6H PRN #20 tablet PRN Reason: dizziness - Referrals Referrals: Arpit Patel MD [Primary Care Provider] - Mike Escobar DO [Staff Physician] - 2 Days - Patient Instructions Printed Discharge Instructions: DI for Vertigo Additional Instructions: Thank you for choosing [facility]. It was a pleasure taking care of you. You were given Meclizine to try if needed for dizziness. Please realize that this medication can also make you drowsy You were referred to neurologist. Please follow-up for further evaluation Return to the Emergency Department if your symptoms worsen or persist, you have fever, shortness of breath, chest pain, severe abdominal pain, vomiting, weakness of extremities (arms and/or legs), changes in vision or other concerning symptoms. - Post Discharge Activity
== END 2019-08-12 23:56 | disposition home or self-care (01) ==
LOC: JER 21:04
DX: R42 Dizziness and giddiness (principal); D69.6 Thrombocytopenia, unspecified
CPT/HCPCS: 70450-TC; 99282-25